=== PATIENT | male | born 1960 | race Two or more races ===

== ENCOUNTER 2025-04-19 12:13 | Inpatient (IN) | payer BC ==
[~2025-04-19] VITALS: Ht 177.8 cm; Wt 115.7 kg
[2025-04-19] MEDS ORDERED: ONDANSETRON HCL/PF 4 MG/2 ML VIAL ONE (12:41)
[2025-04-19] MEDS ORDERED: MORPHINE SULFATE INJ 4 MG/ML DISP.SYRIN ONE (12:42)
[2025-04-19] MEDS ORDERED: FAMOTIDINE/PF INJ 20 MG/2 ML VIAL IV ONE (12:42)
[2025-04-19 12:52] LABS: BASOPHILS % (AUTO) 0.2 % (0.0-2.0); EOSINOPHILS # (AUTO) 0.1 K/uL (0.0-0.7); EOSINOPHILS % (AUTO) 0.8 % (0.0-6.0); HEMATOCRIT 52 % (39-51); LYMPHOCYTES # (AUTO) 0.8 K/uL (0.8-4.8); LYMPHOCYTES % (AUTO) 9.5 % (20.0-44.0); MEAN CORPUSCULAR HEMOGLOBIN 29 PG (26.0-33.0); MEAN CORPUSCULAR HGB CONC 35 g/dl (31.0-36.0); MEAN CORPUSCULAR VOLUME 83 fL (80-96); MONOCYTES # (AUTO) 0.9 K/uL (0.1-1.30); MONOCYTES % (AUTO) 9.8 % (2.0-12.0); NEUTROPHILS # (AUTO) 7.1 K/uL (1.8-8.9); NEUTROPHILS % (AUTO) 79.7 % (43.0-81.0); PLATELET COUNT (AUTO) 118 K/uL (150-450); RED BLOOD CELL COUNT(AUTO) 6.28 MIL/uL (4.5-6.0); RED CELL DISTRIBUTION WIDTH 14.4 % (11.5-15.0); WHITE BLOOD COUNT (AUTO) 8.9 K/uL (4.3-11.0)
[2025-04-19] MEDS: FAMOTIDINE/PF INJ 20 MG/2 ML VIAL IV ONE (13:00)
[2025-04-19] MEDS: IV NS 0.9% 1,000 ML BAG IV ONE (13:00)
[2025-04-19] MEDS: MORPHINE SULFATE INJ 2 MG/ML DISP.SYRIN IV ONE (13:00)
[2025-04-19] MEDS: ONDANSETRON HCL/PF 4 MG/2 ML VIAL IVP ONE (13:00)
[2025-04-19 13:16] LABS: CALCIUM, SERUM 11.6 mg/dL (8.5-10.1); CARBON DIOXIDE 27 mmol/L (21-32); CHLORIDE 101 mmol/L (98-107); CREATININE 0.9 mg/dL (0.6-1.3); GLUCOSE 166 mg/dL (74-106); POTASSIUM 3.8 mmol/L (3.5-5.1); SODIUM SERUM 138 mmol/L (136-145); UREA NITROGEN, BLOOD 18 mg/dL (7-18)
[2025-04-19 13:23] LABS: ALANINE AMINOTRANSFERASE 46 U/L (12-78); ALBUMIN 4.4 g/dL (3.4-5.0); ALKALINE PHOSPHATASE 83 U/L (46-116); ASPARTATE AMINOTRANSFERASE 27 U/L (15-37); BILIRUBIN,DIRECT 0.2 mg/dL (0.0-0.2); LIPASE > 375 U/L (16-77); TOTAL PROTEIN, SERUM 8.6 g/dL (6.4-8.2)
[2025-04-19 14:30] LABS: LYMPHOCYTES % (MANUAL) 9 % (16-48); MONOCYTES % (MANUAL) 8 % (0-11.0); NEUTROPHILS % (MANUAL) 83 (42-76); PLATELET ESTIMATE DECREASED
[2025-04-19] MEDS ORDERED: HYDR25TA4 PO (14:54)
[2025-04-19] MEDS ORDERED: EMTR1TAB17 PO (14:54)
[2025-04-19] MEDS ORDERED: GLIM4TAB37 PO (14:54)
[2025-04-19] MEDS ORDERED: METF1000 PO (14:54)
[2025-04-19] MEDS ORDERED: ROSU10TA29 PO (14:54)
[2025-04-19] MEDS ORDERED: AMLO-213 PO (14:54)
[2025-04-19] MEDS ORDERED: NAPR-1009 PO (14:54)
[2025-04-19] MEDS ORDERED: POTA10TA10 PO (14:54)
[2025-04-19] MEDS ORDERED: EMPA25TA PO (14:54)
[2025-04-19] MEDS ORDERED: MAGNESIUM HYDROXIDE 30 ML UDC PO PRN (16:30)
[2025-04-19] MEDS ORDERED: Z GUARD REMEDY 4 OZ OINT TP PRN (16:30)
[2025-04-19] MEDS ORDERED: DEXTROSE 50%-WATER 50 ML DISP.SYRIN IV PRN (16:30)
[2025-04-19] MEDS: MORPHINE SULFATE INJ 4 MG/ML DISP.SYRIN IV PRN (16:53)
[2025-04-19] MEDS: ENOXAPARIN SODIUM 40 MG/0.4 ML DISP.SYRIN SQ SCH (16:54)
[2025-04-19] MEDS: IV D5/ 0.9% NACL 1,000 ML IV SCH (17:06)
[2025-04-19] MEDS: Fenofibrate 48 MG TABLET PO SCH (17:22)
[2025-04-19] MEDS: BLOOD SUGAR DIAGNOSTIC 1 EACH STRIP IN SCH (17:28)
[2025-04-19] MEDS: MAG HYDROX/AL HYDROX/SIMETH 30 ML UDC PO PRN (19:44)
[2025-04-19] MEDS: ONDANSETRON HCL/PF 4 MG/2 ML VIAL IVP PRN (19:45)
[2025-04-19 20:00] VITALS: BP 113/68; TEMP 98.8; O2SAT 95
[2025-04-19] MEDS: INSULIN REGULAR, HUMAN 100 UNIT/ML 3 ML VIAL SQ PRN (23:07)
[2025-04-20 07:04] LABS: BASOPHILS % (AUTO) 0.1 % (0.0-2.0); EOSINOPHILS % (AUTO) 0.5 % (0.0-6.0); HEMATOCRIT 45 % (39-51); LYMPHOCYTES # (AUTO) 0.6 K/uL (0.8-4.8); MEAN CORPUSCULAR HEMOGLOBIN 30 PG (26.0-33.0); MEAN CORPUSCULAR HGB CONC 36 g/dl (31.0-36.0); MEAN CORPUSCULAR VOLUME 84 fL (80-96); MONOCYTES # (AUTO) 0.8 K/uL (0.1-1.30); MONOCYTES % (AUTO) 9.8 % (2.0-12.0); NEUTROPHILS # (AUTO) 6.9 K/uL (1.8-8.9); NEUTROPHILS % (AUTO) 82.6 % (43.0-81.0); PLATELET COUNT (AUTO) 92 K/uL (150-450); RED BLOOD CELL COUNT(AUTO) 5.36 MIL/uL (4.5-6.0); RED CELL DISTRIBUTION WIDTH 14.5 % (11.5-15.0); WHITE BLOOD COUNT (AUTO) 8.4 K/uL (4.3-11.0)
[2025-04-20 07:43] LABS: ALBUMIN 3.7 g/dL (3.4-5.0); BILIRUBIN,TOTAL 0.8 mg/dL (0.2-1.0); CALCIUM, SERUM 9.1 mg/dL (8.5-10.1); CREATININE 0.8 mg/dL (0.6-1.3); MAGNESIUM 1.9 mg/dL (1.8-2.4); POTASSIUM 3.7 mmol/L (3.5-5.1); TOTAL PROTEIN, SERUM 7.6 g/dL (6.4-8.2)
[2025-04-20 08:00] VITALS: BP 116/76; TEMP 99.3; O2SAT 94
[2025-04-20] MEDS: PANTOPRAZOLE 40 MG VIAL IV SCH (09:23)
[2025-04-20] MEDS: AMLODIPINE BESYLATE 10 MG TABLET PO SCH (09:24)
[2025-04-20] MEDS: ATORVASTATIN 40 MG TABLET PO SCH (09:24)
[2025-04-20] MEDS: EMPAGLIFLOZIN 25 MG TABLET PO SCH (09:43)
[2025-04-20 10:03] LABS: LYMPHOCYTES % (MANUAL) 4 % (16-48); MONOCYTES % (MANUAL) 10 % (0-11.0); NEUTROPHILS % (MANUAL) 86 (42-76); PLATELET ESTIMATE DECREASED
[2025-04-20 10:06] LABS: STOMATOCYTES FEW
[2025-04-20 16:00] VITALS: BP 132/78; TEMP 98.6; O2SAT 94
[2025-04-20] MEDS: ACETAMINOPHEN 325 MG TABLET PO PRN (16:51)
[2025-04-20] MEDS: IV LR 1000 ML 1,000 ML IV PRN (18:26)
[2025-04-20 20:00] VITALS: BP 135/85; TEMP 99; O2SAT 95
[2025-04-21 06:45] LABS: BASOPHILS % (AUTO) 0.1 % (0.0-2.0); EOSINOPHILS # (AUTO) 0.1 K/uL (0.0-0.7); EOSINOPHILS % (AUTO) 1.3 % (0.0-6.0); HEMATOCRIT 45 % (39-51); HEMOGLOBIN 15.2 g/dL (13.5-17.5); LYMPHOCYTES # (AUTO) 0.9 K/uL (0.8-4.8); LYMPHOCYTES % (AUTO) 11.1 % (20.0-44.0); MEAN CORPUSCULAR HEMOGLOBIN 29 PG (26.0-33.0); MEAN CORPUSCULAR HGB CONC 34 g/dl (31.0-36.0); MEAN CORPUSCULAR VOLUME 86 fL (80-96); MONOCYTES # (AUTO) 0.7 K/uL (0.1-1.30); MONOCYTES % (AUTO) 9.5 % (2.0-12.0); PLATELET COUNT (AUTO) 96 K/uL (150-450); RED BLOOD CELL COUNT(AUTO) 5.26 MIL/uL (4.5-6.0); RED CELL DISTRIBUTION WIDTH 14.8 % (11.5-15.0); WHITE BLOOD COUNT (AUTO) 7.7 K/uL (4.3-11.0)
[2025-04-21 07:02] LABS: ALBUMIN 3.6 g/dL (3.4-5.0); CALCIUM, SERUM 8.7 mg/dL (8.5-10.1); CREATININE 0.9 mg/dL (0.6-1.3); MAGNESIUM 2.3 mg/dL (1.8-2.4); POTASSIUM 3.7 mmol/L (3.5-5.1); TOTAL PROTEIN, SERUM 7.5 g/dL (6.4-8.2)
[2025-04-21 07:41] LABS: NEUTROPHILS % (MANUAL) 76 (42-76)
[2025-04-21 07:42] LABS: EOSINOPHILS % (MANUAL) 1 % (0-4); LYMPHOCYTES % (MANUAL) 11 % (16-48); MONOCYTES % (MANUAL) 12 % (0-11.0); PLATELET ESTIMATE DECREASED
[2025-04-21 07:43] LABS: STOMATOCYTES FEW
[2025-04-21 08:00] VITALS: BP 131/85; TEMP 98.3; O2SAT 100
[2025-04-21 08:05] VITALS: BP 131/85; TEMP 98.3; O2SAT 100
[2025-04-21] MEDS: DESCOVY PO SCH (09:01)
[2025-04-21] MEDS ORDERED: ONDA4TAB11 PO (09:01)
[2025-04-21] MEDS ORDERED: HYDR-3972 PO (09:01)
[2025-04-21] MEDS ORDERED: FENO43CA6 PO (09:01)
[2025-04-21] MEDS: PANTOPRAZOLE 40 MG TABLET.DR PO SCH (09:02)
[2025-04-21 09:08] VITALS: BP 131/85
== END 2025-04-21 12:38 | disposition home or self-care (01) | DRG 440 ==
LOC: ER 12:18 → TELE 16:18 → MED 16:46
PROVIDERS: ADMIT Nurse Practitioner Family; ATTEND Nurse Practitioner Family
DX: K85.20 Alcohol induced acute pancreatitis without necrosis or infection (principal); E11.65 Type 2 diabetes mellitus with hyperglycemia; D75.1 Secondary polycythemia; K74.60 Unspecified cirrhosis of liver; D69.6 Thrombocytopenia, unspecified; E66.9 Obesity, unspecified; E78.1 Pure hyperglyceridemia; E83.52 Hypercalcemia; E86.0 Dehydration; M19.90 Unspecified osteoarthritis, unspecified site; Z79.84 Long term (current) use of oral hypoglycemic drugs; K76.0 Fatty (change of) liver, not elsewhere classified; K70.30 Alcoholic cirrhosis of liver without ascites; Z88.1 Allergy status to other antibiotic agents; K40.90 Unilateral inguinal hernia, without obstruction or gangrene, not specified as recurrent; Z68.36 Body mass index [BMI] 36.0-36.9, adult; I10 Essential (primary) hypertension; K57.30 Diverticulosis of large intestine without perforation or abscess without bleeding; F10.20 Alcohol dependence, uncomplicated
CPT/HCPCS: 36415; 71045-TC; 76700-TC; 80048-TC; 80053-TC; 80076-TC; 82962-TC; 83690-TC; 83735-TC; 83970; 84100-TC; 84478-TC; 84484-TC; 85025-TC; 93307-TC; G0378; G0480; J1308; J1650; J1815; J2270; J2405; J2470; J7030; J7042; J7120